=== PATIENT | male | born 1975 | race Caucasian/White ===

== ENCOUNTER 2020-02-16 16:07 | Emergency (ER) | payer OTHER ==
[2020-02-16] MEDS ORDERED: IBUPROFEN 400 MG TABLET (FP) PO ONE ×2 (16:18→16:25)
[2020-02-16 16:40] VITALS: BP 133/88; PULSE 104; TEMP 98.5; BMI 26.4
== END 2020-02-16 17:44 | disposition home or self-care (01) ==
LOC: FER 16:07
DX: S93.491A Sprain of other ligament of right ankle, initial encounter (principal)
CPT/HCPCS: 73610-TC-RT-FY; 73630-TC-RT-FY; 99284-25